=== PATIENT | female | born 1970 | race Caucasian/White ===

== ENCOUNTER 2016-05-12 14:59 | Emergency (ER) | payer BC ==
--- NOTE | 2016-05-12 15:30 | UC ---
Complaint Female HPI - HPI Summary HPI Summary: complaint of blood in her urine this morning increased urgency to urinate for 2 days increased frequency of urination slight pain with urination denies fever, back pain and abdominal pain took some aspirin with no relief sees PCP at [facility] was taking HCTZ for HTN- hasn't taken medicaiton for 2 days because she forgets - History Of Current Complaint Chief Complaint: UCGU Stated Complaint: URINARY Time Seen by Provider: 05/12/16 15:04 Hx Obtained From: Patient Hx Last Menstrual Period: 04/29/16 - Allergies/Home Medications Allergies/Adverse Reactions: Allergies Allergy/AdvReac Type Severity Reaction Status Date / Time Azithromycin [From Zithromax] Allergy Intermediate Hives Verified 05/12/16 15:14 Penicillins Allergy Unknown as a child Verified 05/12/16 15:14 Home Medications: Home Medications Aspirin [Aspirin Adult Low Dose] 81 mg PO BEDTIME 05/12/16 [History Confirmed ] Ranitidine HCl [Zantac 150 Maximum Streng] 150 mg PO DAILY 05/12/16 [History Confirmed 05/12/16] medroxyPROGESTERone TAB* [Provera TAB*] 1 tab SEE INSTRUCTIONS 05/12/16 [ History Confirmed 05/12/16] PMH/Surg Hx/FS Hx/Imm Hx Previously Healthy: Yes Cardiovascular History Of: Reports: Hypertension - pt stopped med - Surgical History Surgical History: Yes Surgery Procedure, Year, and Place: ovarian cyst. D & C - Family History Known Family History: Positive: Hypertension - parents Negative: Cardiac Disease, Diabetes - Social History Occupation: Employed Full-time Lives: With Family Alcohol Use: Rare Substance Use Type: None Smoking Status (MU): Never Smoked Tobacco - Immunization History Most Recent Influenza Vaccination: none Review of Systems Constitutional: Negative Skin: Negative ENT: Negative Respiratory: Negative Cardiovascular: Negative Gastrointestinal: Negative Genitourinary: Hematuria, Frequency, Urgency Motor: Negative Neurovascular: Negative Musculoskeletal: Negative Neurological: Negative Psychological: Negative All Other Systems Reviewed And Are Negative: Yes Physical Exam Triage Information Reviewed: Yes Appearance: No Pain Distress, Well-Nourished Vital Signs: Initial Vital Signs Temp 97.0 F 05/12/16 15:07 Pulse 88 05/12/16 15:07 Resp 16 05/12/16 15:07 BP 174/100 05/12/16 15:07 Pulse Ox 100 05/12/16 15:07 Vital Signs Reviewed: Yes Eyes: Positive: Conjunctiva Clear ENT: Positive: Pharynx normal, TMs normal Neck: Positive: Supple, No Lymphadenopathy Respiratory: Positive: Lungs clear, Normal breath sounds, No respiratory distress Cardiovascular: Positive: RRR, No Murmur, Pulses Normal Abdomen Description: Positive: Nontender, No Organomegaly, Soft. Negative: CVA Tenderness (R), CVA Tenderness (L), Guarding Bowel Sounds: Positive: Present Musculoskeletal: Positive: No Edema Neurological: Positive: Alert Psychological Exam: Normal Skin Exam: Normal Complaint Female Dx - Course Course Of Treatment: exam completed. will treate for UTI- explained possibility of kidney stone and pt states she doesn't want a ct scan at this time and will return of she has an increase in pain. HTN- will restart medication and call PCP for followup - Differential Dx/Diagnosis Differential Diagnosis/HQI/PQRI: Ureteral Stone, Urinary Tract Infection Provider Diagnoses: UTI, HTN Discharge - Discharge Plan Condition: Stable Disposition: HOME Patient Education Materials: Urinary Tract Infection in Women (ED), Hypertension (ED) Referrals: [facility] [place] [facility] [place] [facility] [Outside] Additional Instructions: Please take antibiotic as directed. There is blood in your urine which could indicate that you possibly have a kidney stone-if your symptoms do not improve or worsen please seek medical care in emergency department Increase fluids and rest Take acetaminophen for fever or pain Please review your discharge instructions. If your symptoms do not improve please call your primary care provider or return to urgent care. It is extremely important that you restart your blood pressure medication and make followup appointment with your primary care provider.
== END 2016-05-12 15:57 | disposition home or self-care (01) ==
LOC: UCCORT 14:59
DX: N39.0 Urinary tract infection, site not specified (principal); I10 Essential (primary) hypertension; Z88.3 Allergy status to other anti-infective agents; Z88.0 Allergy status to penicillin
CPT/HCPCS: 87086; 99202; G0463